=== PATIENT | female | born 1995 | race African-American/Black ===

== ENCOUNTER 2020-08-07 01:37 | Emergency (ER) | payer MEDICAID ==
[~2020-08-07] VITALS: Ht 170.2 cm; Wt 55.0 kg
[2020-08-07] MEDS ORDERED: DIPHENHYDRAMINE 50MG/ML VIAL IV ONE (02:00)
[2020-08-07] MEDS ORDERED: FAMOTIDINE 20MG TABLET PO ONE (02:00)
[2020-08-07] MEDS ORDERED: EPINEPHRINE 1:1000 1 MG/ML AMP IM ONE (02:00)
[2020-08-07] MEDS ORDERED: SODIUM CHLORIDE 0.9% 1,000 ML IV ONE (02:00)
[2020-08-07] MEDS ORDERED: EPIN0.3P3 IM (03:54)
[2020-08-07] MEDS ORDERED: DIPH25TA62 PO (03:54)
[2020-08-07 05:35] VITALS: BP 116/54
== END 2020-08-07 05:43 | disposition home or self-care (01) ==
LOC: ER 01:37
DX: T78.04XA Anaphylactic reaction due to fruits and vegetables, initial encounter (principal); F12.10 Cannabis abuse, uncomplicated; Z91.040 Latex allergy status; Z91.018 Allergy to other foods
CPT/HCPCS: 96361; 96372; 96374; 99285; J1200; J3490; J7030